=== PATIENT | female | born 1975 | race Hispanic/Latino ===

== ENCOUNTER 2018-01-15 15:23 | Emergency (ER) | payer OTHER ==
[~2018-01-15] VITALS: Ht 162.6 cm; Wt 92.5 kg
[~2018-01-15 15:23] MED LIST: CIPRO500 M1 PO; DIFLUCAN150 M1 PO; PERCOCET 5-3251 EACH PO; ZOFRAN ODT4 M1 SL
--- NOTE | 2018-01-15 19:28 | ED NECK/BACK PAIN COMPLAINT ---
History of Present Illness General Chief Complaint: Low Back Pain/Injury Stated Complaint: SEEN MONDAY FOR BACK PAIN Source: patient, old records Exam Limitations: no limitations Vital Signs & Intake/Output Vital Signs & Intake/Output Vital Signs Date Time Temp Pulse Resp B/P B/P Pulse O2 O2 Flow FiO2 Mean Ox Delivery Rate 01/16 2208 97.4 82 18 128/83 98 Room Air 01/15 1956 98.0 81 18 155/108 100 Room Air 01/15 1710 98.7 81 18 132/100 99 Room Air 01/15 1549 98.9 83 22 142/102 99 Room Air ED Intake and Output 01/16 0000 01/15 1200 Intake Total 120 Output Total Balance 120 Intake, Oral 120 Patient 204 lb Weight Weight Reported by Patient Measurement Method Allergies Coded Allergies: cetirizine (From ZYRTEC) (Intermediate, TACHYCARDIA 01/15/18) pseudoephedrine (From ZYRTEC-D) (Intermediate, TACHYCARDIA 01/15/18) adhesive tape (Mild, RASH 01/15/18) Reconcile Medications Ciprofloxacin HCl (Cipro) 500 MG TABLET 1 TAB PO BID uti Fluconazole (Diflucan) 150 MG TABLET 1 TAB PO ONCE PRN yeast Ibuprofen 800 MG TABLET 1 TAB PO TID PRN PAIN Metoclopramide HCl (Reglan) 10 MG TABLET 1 TAB PO 4 TIMES/DAY PRN NAUSEA 30 minutes before meals and bedtime Ondansetron (Zofran Odt) 4 MG TAB.RAPDIS 1 TAB SL TID PRN nausea Oxycodone HCl/Acetaminophen (Percocet 5-325 MG Tablet) 5 MG-325 MG TABLET 1 TAB PO BID PRN pain Triage Note: TRIAGE: PT TO ER C/C PAIN FROM MID BACK WRAPS AROUND TO MID UPPER ABD SINCE MONDAY. CONSTANT SINCE ONSET. WAS SEEN HERE MONDAY FOR SAME AND WAS DIAGNOSED WITH POSSIBLE KIDNEY STONE THOUGH WAS NOT SEEN ON SCAN. PAIN UNRELIEVED WITH PRESCRIBED PAIN MED AND CAN'T GET INTO UROLOGIST UNTIL MONDAY BUT CAN'T WAIT. ALSO REPORTS SHE NOW HAS POUNDING HEAD PAIN SINCE LAST NIGHT. TOOK ALEVE WITH NO RELIEF. WAS FEBRILE ON MONDAY HERE AND THINKS LAST NIGHT BUT DID NOT CHECK TEMP. Triage Nurses Notes Reviewed? yes Onset: Abrupt Duration: day(s): (4-5), changing over time, continues in ED Timing: single episode today Quality/Severity: moderate, sharpness Location: paraspinous muscles Radiation: none Method of Injury: unknown Loss of Consciousness: no loss of consciousness Associated Symptoms: abdominal pain, fever, lower back pain, nausea/vomiting LMP (ages 10-50): unknown : No Patient currently breastfeeds: No HPI: 42-year-old female with no past medical history presents for evaluation of back pain abdominal pain nausea and fever. Patient states that symptoms started for 5 days ago and had been getting worse. She was seen here 2 days ago and diagnosed with possible kidney stone/UTI. She was started on antibiotics given Percocet for pain. She states that her pain has been persistent. She states that she has not been taking the Percocet as it makes her more nauseous. She Able to eat or drink much due to nausea. There's been no vomiting or diarrhea. She reports having a fever several days ago but nothing since. No chest pain shortness of breath hemoptysis or lower extremity edema. The pain is located on both sides of her middle back and lower abdomen. It does not radiate she describes this as sharp. It is worse with touching the area. She denies any urinary symptoms, chest pain, shortness of breath, numbness, tingling, trauma. She also reports that she has a headache described as pressure and pounding. Located in the front of her head behind her eye on the right side. She denies any previous history of headaches. No head trauma changes in vision. She is photophobic. (Sae Yepez) Past History Travel History Traveled to [place] past 21 day No Medical History Any Pertinent Medical History? 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 No (Sae Yepez) Review of Systems Review of Systems Constitutional: Reports: fever, malaise. Eyes: Reports: no symptoms. Ears, Nose, Throat, Mouth: Reports: no symptoms. Respiratory: Reports: no symptoms. Cardiovascular: Reports: no symptoms. Gastrointestinal/Abdominal: Reports: see HPI, abdominal pain, nausea. Musculoskeletal: Reports: see HPI, back pain, muscle pain, muscle stiffness. Skin: Reports: no symptoms. Neurological/Psychological: Reports: headache. All Other Systems: Reviewed and Negative (Sae Yepez) Physical Exam Physical Exam General Appearance: well developed/nourished, no apparent distress, alert, awake Head: atraumatic, normal appearance Eyes: Bilateral: normal appearance, PERRL, EOMI, normal inspection. Ears, Nose, Throat, Mouth: hearing grossly normal, moist mucous membrane, Tympanic normal Neck: normal inspection, supple, full range of motion Respiratory: normal breath sounds, chest non-tender, no respiratory distress, lungs clear Cardiovascular: regular rate/rhythm, normal peripheral pulses Peripheral Pulses: 2+ radial (R), 2+ radial (L) Gastrointestinal: normal bowel sounds, soft, no organomegaly, tenderness ( bilateral flanks) Back: normal inspection, normal range of motion, there is bilateral CVA tenderness and thoracic and lumbar paraspinal tenderness. No midline tenderness no step-offs or deformities no bruising swelling or abrasions no rashes Extremities: non-tender, normal range of motion Straight Leg Raising: Right: Negative. Left: Negative. DTR: Patellar: 2: L4 Right, L4 Left. Neurologic/Psych: no motor/sensory deficits, awake, alert, oriented x 3, normal gait, normal mood/affect Skin: intact, normal color, warm/dry Core Measures CVA/TIA Diagnosis: No (Sae Yepez) Progress Differential Diagnosis: AAA, cauda equina syn, herniated disc, myofascial strain , pyelo/UTI, sciatica, ureterolithiasis Plan of Care: Orders Procedure Date/time Status URINE 01/15 1911 Complete URINALYSIS 01/15 1911 Complete C-REACTIVE PROTEIN 01/15 1911 Complete COMPREHENSIVE METABOLIC PANEL 01/15 1911 Complete CBC WITHOUT DIFFERENTIAL 01/15 1911 Complete Laboratory Tests 01/15/18 1950: Urinalysis LIGHT H, Urine Color YEL, Urine Clarity CLEAR, Urine pH 6.0, Ur Specific [place] 1.025, Urine Protein NEG, Urine Ketones TRACE H, Urine Nitrite NEG, Urine Bilirubin NEG, Urine Urobilinogen 0.2, Ur Leukocyte Esterase NEG, Ur Microscopic SEDIMENT EXAMINED, Urine RBC 10-15 H, Urine WBC 5-10 H, Ur Epithelial Cells FEW, Urine Bacteria FEW H, Urine Mucus FEW, Urine Hemoglobin LARGE H, Urine Glucose NEG, Urine Test NEGATIVE 01/15/181941: Anion Gap 13, Estimated GFR > 60, BUN/Creatinine Ratio 18.3, Glucose 92, Calcium 9.3, Total Bilirubin 0.5, AST 28, ALT 75 H, Alkaline Phosphatase 126, C- Reactive Prot, Quant 4.0 H, Total Protein 7.3, Albumin 4.0, Globulin 3.3, Albumin/Globulin Ratio 1.2, CBC w Diff NO MAN DIFF REQ, RBC 4.19 L, MCV 85.3, MCH 28.5, MCHC 33.5, RDW 12.5, MPV 8.0, Gran % 76.0 H, Lymphocytes % 14.9 L, Monocytes % 7.3, Eosinophils % 1.4, Basophils % 0.4, Absolute Granulocytes 8.1 H, Absolute Lymphocytes 1.6, Absolute Monocytes 0.8 H, Absolute Eosinophils 0.1 , Absolute Basophils 0 Patient seen and evaluated. She currently is afebrile nontoxic appearing. She reports she's had continued nausea and headache and back pain. We'll recheck basic labs and urinalysis. Patient was medicated with Benadryl and Reglan. Blood work does not show any acute findings White blood cell count is trending down. Urinalysis still shows some hematuria but no signs of worsening infection. Patient reports no relief of headache or back pain with Benadryl and Reglan but does report improvement in nausea. She is currently able tolerate fluids and food here. She was given 60 mg of IM Toradol for headache and back pain relief and will be reassessed. She reports complete resolution of her headache and significant improvement of her back pain after Toradol. She appears better. She is able to walk around without any difficulty. She is eating and drinking here she appears well her vital signs are stable. Patient will be discharged with instructions to continue Benadryl and Reglan as needed for nausea ibuprofen for pain/headaches. She has an appointment on Monday with urology. Discussed return precautions patient appears well she agrees the plan. (Sae Yepez) Departure Departure Disposition: HOME OR SELF CARE Condition: Stable Clinical Impression Primary Impression: Renal colic Referrals: Xu HATHAWAYHaleigh (PCP/Family) Additional Instructions: Rest and drink plenty of fluids. Reglan as needed for nausea and ibuprofen for pain Percocet for severe pain only. Continue antibiotic show full course. Follow-up with your urologist this Monday as scheduled. Monitor symptoms return with any concerns. Departure Forms: Customer Survey General Discharge Information Prescriptions: Current Visit Scripts Ibuprofen 1 TAB PO TID PRN PAIN #30 TAB Metoclopramide HCl (Reglan) 1 TAB PO 4 TIMES/DAY PRN NAUSEA #30 TAB 30 minutes before meals and bedtime (Sae Yepez) PA/PREFLIGHT INSPECTOR Co-Sign Statement Statement: ED Attending supervision documentation- [] I saw and evaluated the patient. I have also reviewed all the pertinent lab results and diagnostic results. I agree with the findings and the plan of care as documented in the PA's/PREFLIGHT INSPECTOR's documentation. [X] I have reviewed the ED Record and agree with the PA's/PREFLIGHT INSPECTOR's documentation. [] Additions or exceptions (if any) to the PAs/PREFLIGHT INSPECTOR's note and plan are summarized below: [] (Alireza HATHAWAY,Isauro Amezcua)
[2018-01-15 19:57] LABS: ABSOLUTE BASOPHIL COUNT 0 /CUMM (0.0-0.2); ABSOLUTE EOSINOPHIL COUNT 0.1 /CUMM (0.0-0.7); ABSOLUTE GRANULOCYTE CT 8.1 /CUMM (1.4-6.5); ABSOLUTE LYMPH COUNT 1.6 /CUMM (1.2-3.4); ABSOLUTE MONOCYTE COUNT 0.8 /CUMM (0.10-0.60); BASOPHIL % 0.4 % (0.0-2.0); EOSINOPHIL % 1.4 % (0-5); HEMATOCRIT 35.7 % (37-47); MEAN CORPUSCULAR HGB 28.5 PG (27.0-31.0); MEAN CORPUSCULAR HGB CONC 33.5 G/DL (33.0-37.0); MEAN CORPUSCULAR VOLUME 85.3 FL (81.0-99.0); PLATELET COUNT 288 /CUMM (130-400); RBC DISTRIBUTION WIDTH 12.5 % (11.5-14.5); RED BLOOD CELL CT 4.19 /CUMM (4.20-5.40); WHITE BLOOD CELL COUNT 10.7 /CUMM (4.8-10.8)
[2018-01-15] MEDS ORDERED: IBUPROFEN800 M1 PO (21:54)
[2018-01-15] MEDS ORDERED: REGLAN10 M1 PO (21:55)
[2018-01-15 22:08] VITALS: BP 128/83
== END 2018-01-15 22:09 ==
LOC: ERH 15:23
PROVIDERS: Physician Assistant Medical
DX: N23 Unspecified renal colic (principal)
CPT/HCPCS: 81001; 81025; 96372; J1885